=== PATIENT | male | born 1985 | race Caucasian/White ===

== ENCOUNTER 2022-08-19 16:36 | Emergency (ER) | payer OTHER ==
[2022-08-19] MEDS ORDERED: HYDROCODONE/APAP 7.5/325 MG TAB ONE (16:52)
[2022-08-19] MEDS ORDERED: ONDANSETRON 4 MG (ODT) TAB ONE (16:52)
--- NOTE | 2022-08-19 17:38 | RAD REPORT ---
EXAM DESCRIPTION: CT - Head C Spine Cap Wo Con - 08/19/2022 5:23 pm CLINICAL HISTORY: Trauma, head and neck injury. Chest, abdomen and pelvis pain. fall, rib pain, abd pain COMPARISON: No comparisons TECHNIQUE: CT head without contrast. CT cervical spine without contrast with coronal and sagittal reformatted images. CT chest, abdomen and pelvis with coronal and sagittal reformatted images of the spine. All CT scans are performed using dose optimization technique as appropriate and may include automated exposure control or mA/KV adjustment according to patient size. FINDINGS: CT HEAD WITHOUT CONTRAST: No intracranial hemorrhage, hydrocephalus or extra-axial fluid collection. No acute large vascular te rritory infarct. The paranasal sinuses and mastoids are clear. The calvarium is intact. CT CERVICAL SPINE WITHOUT CONTRAST: No fracture or subluxation. The prevertebral soft tissues are normal in thickness. CT CHEST, ABDOMEN, PELVIS: Thorax: Chest Wall: Gas containing collection to the right of the trachea at the level of thoracic inlet may represent a tracheal diverticulum. It is of doubtful acute clinical significance. Lungs: No acute abnormality. Pleura: No effusions or pneumothorax. Nae/Mediastinum: No lymphadenopathy. Aorta/Pulmonary Arteries: Unremarkable Heart: Normal size. Abdomen/Pelvis: Liver: No acute abnormality or suspicious lesions. Biliary: No biliary ductal dilatation. Stomach: No significant focal abnormality. Duodenum: No significant focal abnormality. Pancreas: No significant abnormality. Spleen: No significant abnormality. Adrenal: No suspicious lesions. Kidney/ureter: No hydronephrosis. No renal calculi. Retroperitoneum: No retroperitoneal adenopathy. Vascular: No aneurysm. Bowel: No significant focal abnormality. Peritoneum: No ascites or free air. Bladder: Grossly unremarkable. Reproductive: No adnexal masses. Bones: No acute fracture. Other: n/a IMPRESSION: 1. No acute intracranial abnormality. 2. No evidence of fracture or traumatic malalignment of the cervical spine. 3. No evidence of significant trauma to the chest, abdomen, or pelvis.
--- NOTE | 2022-08-19 17:39 | RAD REPORT ---
EXAM DESCRIPTION: RAD - Humerus Left - 08/19/2022 5:31 pm CLINICAL HISTORY: PAIN COMPARISON: Forearm Left dated 08/19/2022 FINDINGS/IMPRESSION: No acute fracture. No malalignment. No significant focal degenerative changes. Single view submitted.
--- NOTE | 2022-08-19 17:41 | RAD REPORT ---
EXAM DESCRIPTION: RAD - Forearm Left - 08/19/2022 5:31 pm CLINICAL HISTORY: PAIN COMPARISON: No comparisons FINDINGS/IMPRESSION: Lucency at the radial neck could represent nondisplaced fracture. Correlate wit h site of pain. Could consider dedicated left elbow radiograph if there is suspicion for fracture at this site.
--- NOTE | 2022-08-19 18:27 | ER ---
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 L arm pain, L rib ll1 pain, and L sided head pain. No LOC. Abrasion noted L eyebrow. Report some nausea. Coronavirus screen: Vaccine status: Patient reports being unvaccinated. Client denies travel out of the [place] in the last 14 days. At this time, the client does not indicate any symptoms associated with coronavirus-19. Ebola Screen: Patient denies travel to an Ebola-affected area in the 21 days before illness onset. No symptoms or risks identified at this time. Initial Sepsis Screen: Does the patient meet any 2 criteria? No. Patient's initial sepsis screen is negative. Does the patient have a suspected source of infection? Yes: Bone or joint infection. Risk Assessment: Do you want to hurt yourself or someone else? Patient reports no desire to harm self or others. Onset of symptoms was August 19, 2022. 16:38 Method Of Arrival: Ambulatory ll1 16:38 Acuity: LUIS ALBERTO 3 ll1 Triage Assessment: 16:40 General: Appears uncomfortable, Behavior is cooperative, appropriate for age. Pain: ll1 Complains of pain in left arm Pain currently is 7 out of 10 on a pain scale. Quality of pain is described as aching. Neuro: Reports headache. Derm: abrasion L eyebrow area. Musculoskeletal: Circulation, motion, and sensation intact. Capillary refill < 3 seconds, Reports pain in left arm and L ribs. Historical: - Allergies: 16:37 No Known Allergies; ll1 - PMHx: 16:37 None; ll1 - PSHx: 16:37 None; ll1 - Immunization history:: Client reports receiving the 2nd dose of the Covid vaccine. - Social history:: Smoking status: Patient denies any tobacco usage or history of. Screenin:42 [facility] ED Fall Risk Assessment (Adult) History of falling in the last 3 months, db including since admission No falls in past 3 months (0 pts) Confusion or Disorientation No (0 pts) Intoxicated or Sedated No (0 pts) Impaired Gait No (0 pts) Mobility Assist Device Used No (0 pt) Altered Elimination No (0 pt) Score/Fall Risk Level 0 - 2 = Low Risk. Abuse screen: Denies threats or abuse. Denies injuries from another. Nutritional screening: No deficits noted. Tuberculosis screening: No symptoms or risk factors identified. Assessment: 16:42 Reassessment: Patient appears in no apparent distress at this time. Patient is alert, db oriented x 3, equal unlabored respirations, skin warm/dry/pink. fall approximately 6ft off machinery. States her left forearm, left wrist abrasion to left eyebrow and left ribs. General: Appears in no apparent distress. comfortable, Behavior is calm, cooperative, appropriate for age, quiet. Pain: Complains of pain in left arm, left ribs, left eye brow. Neuro: No deficits noted. Level of Consciousness is awake, alert, obeys commands, Oriented to person, place, time, situation, Appropriate for age. Cardiovascular: No deficits noted. Respiratory: No deficits noted. Airway is patent Respiratory effort is even, unlabored, Respiratory pattern is regular, symmetrical. GI: No deficits noted. No signs and/or symptoms were reported involving the gastrointestinal system. : No deficits noted. No signs and/or symptoms were reported regarding the genitourinary system. EENT: No deficits noted. Derm: No deficits noted. No signs and/or symptoms reported regarding the dermatologic system. Musculoskeletal: No deficits noted. No signs and/or symptoms reported regarding the musculoskeletal system. 16:54 Reassessment: PATIENT IS A PRISONER. IN HAND CUFFS. HAS 3 JAIL GUARDS. NOTED SPLINT db TO LEFT ARM. 17:32 Reassessment: patient returned to room from CT. Reassessment: Patient appears in no db apparent distress at this time. Patient and/or family updated on plan of care and expected duration. Pain level reassessed. Patient is alert, oriented x 3, equal unlabored respirations, skin warm/dry/pink. 18:41 Reassessment: Patient appears in no apparent distress at this time. No changes from db previously documented assessment. Patient and/or family updated on plan of care and expected duration. Pain level reassessed. Patient is alert, oriented x 3, equal unlabored respirations, skin warm/dry/pink. Patient states feeling better. Vital Signs: 16:38 BP 134 / 97; Pulse 75; Resp 16; Temp 98.0; Pulse Ox 100% ; Weight 74.84 kg; Height 5 ll1 ft. 9 in. (175.26 cm); Pain 7/10; 16:54 BP 137 / 93; Pulse 76; Resp 18; Pulse Ox 98% on R/A; db 18:41 BP 128 / 90; Pulse 75; Resp 18; Pulse Ox 99% on R/A; db 16:38 Body Mass Index 24.37 (74.84 kg, 175.26 cm) ll1 ED Course: 16:33 Arm band placed on Patient placed in an exam room, on a stretcher. ll1 16:37 Patient arrived in ED. ll1 16:39 Cristela Apodaca RN is Primary Nurse. db 16:40 Mariana Petty [facility]NP-C [facility]. kb 16:40 Caleb Covington MD is Attending Physician. kb 16:40 Triage completed. ll1 16:41 Patient has correct armband on for positive identification. Bed in low position. Call ll1 light in reach. 16:42 No provider procedures requiring assistance completed. db 17:25 CT Traumagram (Head C Spine CAP wo con) In Process Unspecified. EDMS 17:33 Humerus Left XRAY In Process Unspecified. EDMS 17:34 Forearm Left XRAY In Process Unspecified. EDMS 18:42 Orthoglass splint: Sugar tong splint applied on left arm. Sling applied to left arm. db 18:43 Patient did not have IV access during this emergency room visit. db Administered Medications: 16:53 Drug: Zofran (Ondansetron) 4 mg Route: PO; db 17:52 Follow up: Response: No adverse reaction db 16:53 Drug: [place] (HYDROcodone-acetaminophen) (7.5 mg-325 mg) 1 tabs Route: PO; db 17:52 Follow up: Response: No adverse reaction db Medication: 16:41 VIS not applicable for this client. ll1 Outcome: 18:26 Discharge ordered by . kb 18:42 Discharged to Law Enforcement db 18:42 Condition: stable 18:42 Discharge instructions given to police, Instructed on follow up and referral plans. Demonstrated understanding of instructions. 18:43 Patient left the ED. 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 L arm pain, L ll1 rib pain, and L sided head pain. No LOC. Abrasion noted L eyebrow. ll1
--- NOTE | 2022-08-19 18:27 | EDPHYS ---
Physician Documentation [facility] Name: Tony Zhao Age: 37 yrs Sex: Male : 1985 Arrival Date: 08/19/2022 Time: 16:37 Bed 15 Private MD: ED Physician Caleb Covington HPI: 08/19 18:19 This 37 yrs old Male presents to ER via Ambulatory with complaints of fall, rib pain, kb left arm pain. 18:19 Details of fall: The patient fell from a height, 8ft. Onset: The symptoms/episode kb began/occurred just prior to arrival. Associated injuries: The patient sustained injury to the head, abrasion, injury to the chest, specifically the left lateral anterior chest, pain with breathing, pain with movement, tenderness, injury to the abdomen, specifically the left upper quadrant, tenderness, left forearm, decreased range of motion, painful injury, swelling. Severity of symptoms: At their worst the symptoms were moderate, in the emergency department the symptoms are unchanged. The patient has not experienced similar symptoms in the past. The patient has not recently seen a physician. Pt states he fell from a scissor lift approx 8 ft. c/o pain to left arm, worse in the wrist, left ribs and left upper quadrant. Small abrasion to left side of forehead from hitting head on concrete. Historical: - Allergies: 16:37 No Known Allergies; ll1 - PMHx: 16:37 None; ll1 - PSHx: 16:37 None; ll1 - Immunization history:: Client reports receiving the 2nd dose of the Covid vaccine. - Social history:: Smoking status: Patient denies any tobacco usage or history of. ROS: 18:14 Constitutional: Negative for fever, chills, and weight loss. kb 18:14 Cardiovascular: Positive for chest pain, with movement, of the left lateral anterior chest. 18:14 Abdomen/GI: Positive for abdominal pain, of the left upper quadrant. 18:14 MS/extremity: Positive for injury or acute deformity, decreased range of motion, pain, of the left forearm. 18:14 Skin: Positive for abrasion(s), of the left side of forehead. 18:14 All other systems are negative. Exam: 18:15 Constitutional: This is a well developed, well nourished patient who is awake, alert, kb and in no acute distress. Head/Face: Normocephalic, atraumatic. ENT: Moist Mucous membranes Neck: Trachea midline, no thyromegaly or masses palpated, and no cervical lymphadenopathy. Supple, full range of motion without nuchal rigidity, or vertebral point tenderness. No Meningismus. Cardiovascular: Regular rate and rhythm with a normal S1 and S2. No gallops, murmurs, or rubs. No pulse deficits. Respiratory: Respirations even and unlabored. No increased work of breathing. Talking in full sentences Abdomen/GI: Soft, non-tender. No distention Neuro: Awake and alert, GCS 15, oriented to person, place, time, and situation. Moves all extremities. Normal gait. Psych: Awake, alert, with orientation to person, place and time. Behavior, mood, and affect are within normal limits. 18:15 Chest/axilla: Inspection: normal, Palpation: tenderness, that is moderate, of the left lateral anterior chest, that partially reproduces the patient's complaints. 18:15 Abdomen/GI: Inspection: abdomen appears normal, Bowel sounds: normal, in all quadrants, Palpation: soft, in all quadrants, mild abdominal tenderness, in the left upper quadrant. 18:15 Musculoskeletal/extremity: Extremities: grossly normal except: noted in the left wrist: decreased ROM, ecchymosis, pain, swelling, tenderness. 18:15 Skin: injury, abrasion(s), very small abrasion noted, of the left side of forehead. Vital Signs: 16:38 BP 134 / 97; Pulse 75; Resp 16; Temp 98.0; Pulse Ox 100% ; Weight 74.84 kg; Height 5 ll1 ft. 9 in. (175.26 cm); Pain 7/10; 16:54 BP 137 / 93; Pulse 76; Resp 18; Pulse Ox 98% on R/A; db 18:41 BP 128 / 90; Pulse 75; Resp 18; Pulse Ox 99% on R/A; db 16:38 Body Mass Index 24.37 (74.84 kg, 175.26 cm) ll1 MDM: 16:40 Patient medically screened. kb 18:05 Data reviewed: vital signs, nurses notes. Data interpreted: Pulse oximetry: on room air kb is 98 %. Interpretation: normal. Counseling: I had a detailed discussion with the patient and/or guardian regarding: the historical points, exam findings, and any diagnostic results supporting the discharge/admit diagnosis, radiology results, the need for outpatient follow up, a orthopedic surgeon, to return to the emergency department if symptoms worsen or persist or if there are any questions or concerns that arise at home. 18:25 ED course: Pt has no pain or tenderness to elbow. kb 08/19 16:40 Order name: CT Traumagram (Head C Spine CAP wo con); Complete Time: 17:40 kb 08/19 16:40 Order name: Humerus Left XRAY; Complete Time: 17:40 kb 08/19 16:40 Order name: Forearm Left XRAY; Complete Time: 17:42 kb 08/19 17:09 Order name: Misc. Order; Complete Time: 17:32 kb 08/19 17:49 Order name: Sugar Tong Forearm Splint; Complete Time: 18:43 kb 08/19 17:49 Order name: Sling; Complete Time: 18:43 kb Administered Medications: 16:53 Drug: Zofran (Ondansetron) 4 mg Route: PO; db 17:52 Follow up: Response: No adverse reaction db 16:53 Drug: [place] (HYDROcodone-acetaminophen) (7.5 mg-325 mg) 1 tabs Route: PO; db 17:52 Follow up: Response: No adverse reaction db Disposition: 18:50 Co-signature as Attending Physician, Caleb Covington MD I agree with the assessment and rt plan of care. Disposition Summary: 08/19/22 18:26 Discharge Ordered Location: Home kb Condition: Stable kb Diagnosis - Fall from 8 feet kb - Left chest wall pain kb - Other specified sprain of left wrist - possible buckle fracture kb Followup: kb - With: Emergency Department - When: As needed - Reason: Worsening of condition Followup: kb - With: Private Physician - When: 2 - 3 days - Reason: Recheck today's complaints, Continuance of care, Re-evaluation by your physician Discharge Instructions: - Discharge Summary Sheet kb - Rib Contusion kb - Chest Wall Pain, [id number] kb - Wrist Sprain, Adult kb Forms: - Medication Reconciliation Form kb - Thank You Letter kb - Antibiotic Education kb - Prescription Opioid Use kb Signatures: Dispatcher [employer] EDMariana Moya, CLIENT CONSULTANT-C CLIENT CONSULTANT-Hortencia Islas, RN RN ll1 Cristela Apodaca, RN RN db Caleb Covington MD MD rt
[2022-08-19 18:48] VITALS: TEMP 98
[2022-08-19 18:50] VITALS: BP 128/90; O2SAT 99
== END 2022-08-19 18:43 | disposition home or self-care (01) ==
LOC: ER 16:36
PROC: 2W3DX1Z Immobilization of Left Lower Arm using Splint (ICD-10-PCS; principal; 2022-08-19)
DX: R07.89 Other chest pain (principal); S63.592A Other specified sprain of left wrist, initial encounter; W17.89XA Other fall from one level to another, initial encounter
CPT/HCPCS: 70450; 71250; 72125; 73090; 73060; 99283; 29125; Q0162